=== PATIENT | male | born 1945 | race Hispanic/Latino ===

== ENCOUNTER 2018-11-24 05:46 | Day surgery (SDC) | payer MEDICARE ==
[2018-10-30 12:21] VITALS: BMI 22.3
--- NOTE | 2018-11-21 23:12 | HP ---
DATE OF EXAM: 11/21/2018 REASON FOR ADMISSION: Left heart catheterization, possible angioplasty, and abnormal stress test. BRIEF CLINICAL HISTORY: This is a 73-year-old male with a past medical history significant for nonobstructive coronary artery disease, status post cardiac catheterization in the past, hypertension, hyperlipidemia, admitted for left heart catheterization, possible angioplasty because of abnormal stress test. PAST MEDICAL HISTORY: Hypertension, hyperlipidemia, coronary artery disease nonobstructive, status post cardiac catheterization in the past. PREVIOUS CARDIAC WORKUP: As follows; the patient had a cardiac catheterization on 05/14/2016, that showed LAD 40% stenosis, circumflex, OM1 and OM2, 50% stenosis, RCA 30% to 40% stenosis, ejection fraction 55% to 60%. EDP was in the range of 15 to 18. Recently, the patient had a stress test dated 10/30/2018 that shows ejection fraction 46%. Abnormal myocardial perfusion study, medium sized anteroseptal apical defect suggestive of ischemia. When compared to 04/11/2016, the perfusion defect appears much larger than previous catheterization. Previous catheterization dated 05/10/2016, at that time revealed nonobstructive coronary artery disease limited to OM2, 60% to 70% ostial stenosis. Diffuse heavily atherosclerotic burden noted. Preserved LV function ejection fraction 50% to 60%. EDP was in the range of 15 to 18. Medical treatment recommended. The patient had echocardiography also dated 10/27/2018 that shows [id number] mitral regurgitation, trace tricuspid regurgitation, trace pulmonary insufficiency, ejection fraction 65%, and RV systolic pressure 23.6. SOCIAL HISTORY: Denies any smoking. Denies any history of alcohol abuse. CURRENT MEDICATIONS: The patient is taking at home simvastatin 40 mg daily, omeprazole 20 mg daily, Trajenta 5 mg daily, enalapril 2.5 mg daily, and aspirin 81 mg daily. ALLERGIES: NO KNOW DRUG ALLERGIES. PHYSICAL EXAMINATION: VITAL SIGNS: Height of the patient 5 feet 11 inches, patient's weight 160 pounds, and body mass index 25 kg/m2. Rest of the vitals; temperature afebrile, heart rate 80, and blood pressure 130/80. HEENT: PERRLA. Extraocular muscles intact. NECK: Supple. No carotid bruits. No thyromegaly. CHEST: Clear to auscultation. HEART: S1 and S2 regular. ABDOMEN: Soft. EXTREMITIES: Clubbing and cyanosis negative. DIAGNOSTIC DATA: EKG shows normal sinus, no acute ST-T changes noted, within normal limits. LABORATORY DATA: Lab workup pending. IMPRESSION AND PLAN: A 73-year-old male with past medical history of hypertension, hyperlipidemia, diabetes, abnormal stress test, cardiomyopathy, history of coronary artery disease, status post cardiac catheterization in 2016, nonobstructive coronary artery disease, limited to obtuse marginal 2 and left anterior descending and right coronary artery of 30% to 40% stenosis, had abnormal anteroseptal defect much larger than before. The patient is scheduled for cardiac catheterization. Risks, benefits, and alternatives were discussed with the patient, patient agreed, and we will proceed for cardiac catheterization. Further recommendations after cardiac catheterization. We will follow the lab when it is available. Then, we will proceed after the lab is available. We will load with aspirin, Plavix and proceed for cardiac catheterization. Further recommendation after cardiac catheterization. Ryan Stubbs MD cc: MD Dr. Santiago Baldwin MD
[2018-11-24] MEDS ORDERED: Lidocaine 2% Inj (20ml) ONE (06:58)
[2018-11-24] MEDS ORDERED: Iohexol 350mgl/ml 50 ML ONE (06:59)
[2018-11-24] MEDS ORDERED: Phenylephrine 10 mg/ml Inj ONE (06:59)
[2018-11-24] MEDS ORDERED: Heparin 2,000 ML IV ONE (07:00)
[2018-11-24] MEDS ORDERED: Nitroglycerin 50mg in D5W 50 MG/250 ML BOTTLE IV ONE (07:00)
[2018-11-24] MEDS ORDERED: Iodixanol 320 MG/ML 100 ML BOTTLE IV ONE (07:00)
[2018-11-24] MEDS ORDERED: Iodixanol 320 MG/ML 200 ML BOTTLE IV ONE (07:00)
[2018-11-24 07:14] LABS: BASO # 0.02 K/mm3 (0.0-2.0); BASO % 0.2 % (0.0-3.0); EOS # 0.3 (0.0-0.7); EOS % 3.4 % (1.5-5.0); GRAN # 7.42 (1.4-6.5); GRAN % 78.4 % (50.0-68.0); LYMPH # 1.2 (1.2-3.4); LYMPH % 12.5 % (22.0-35.0); MEAN CELL VOLUME 91.7 fl (80.0-105.0); MEAN CORPUSCULAR HEMOGLOBIN 30.8 pg (25.0-35.0); MEAN CORPUSCULAR HGB CONC 33.6 g/dl (31.0-37.0); MEAN PLATELET VOLUME 11.7 fl (7.0-11.0); MONO # 0.5 (0.1-0.6); MONO % 5.5 % (1.0-6.0); RBC 5.52 10^6/uL (3.5-6.1); RED CELL DISTRIBUTION WIDTH 13.4 % (11.5-14.5); WHITE BLOOD COUNT 9.5 10^3/uL (4.5-11.0)
[2018-11-24 07:23] LABS: INR 1.03; PARTIAL THROMBOPLASTIN TIME 27.7 Seconds (25.1-36.5); PROTHROMBIN TIME 11.8 SECONDS (9.4-12.5)
[2018-11-24 07:34] LABS: BLOOD UREA NITROGEN 16 mg/dL (7-21); GFR NON-AFRICAN AMERICAN > 60
[2018-11-24] MEDS ORDERED: Verapamil 2 ML ONE (07:34)
[2018-11-24] MEDS ORDERED: Midazolam 2 MG/2 ML VIAL ONE ×2 (07:38→08:18)
[2018-11-24] MEDS ORDERED: Eptifibatide 20 mg/10mL Inj IVP ONE (08:21)
[2018-11-24] MEDS ORDERED: Sodium Chloride 0.9% 1,000 ML IV SCH (09:30)
--- NOTE | 2018-11-24 09:49 | CPOSTOP ---
DATE: 11/24/2018 CARDIOVASCULAR LAB POST PROCEDURE NOTE PHYSICIAN: Dr. Cata Stubbs. SUPERVISOR UNLOADING: WALE Campos. TYPE OF ANESTHESIA: Moderate conscious sedation, total 2 mg of Versed and 150 mcg of fentanyl given periodically. Started 1 mg of Versed and 50 of fentanyl. PRE-PROCEDURE DIAGNOSES: Coronary artery disease nonobstructive, recent stress test abnormal and unstable angina. PROCEDURE PERFORMED: 1. Left heart catheterization. 2. Stenting of proximal LAD. 3. Stenting of obtuse marginal 2. 4. Plain balloon angioplasty of OM1. FINDINGS: Multivessel coronary artery disease. FINAL DIAGNOSIS: Multivessel coronary artery disease. POSTPROCEDURE PATIENT CONDITION: The patient condition is stable. VASCULAR ACCESS SITE: Left radial. CLOSURE DEVICE: TR-band. RADIATION DOSE: 70320.00 milligray unit. TOTAL FLUORO TIME: 10.6. Ryan Stubbs MD
[2018-11-24 12:32] VITALS: TEMP 98.1; O2SAT 99
--- NOTE | 2018-11-24 13:31 | CARD ---
APPROVED REPORT Date of service: 11/24/2018 EKG Measurement Heart [id number] <Conclusion> Marked sinus bradycardia Abnormal ECG
[2018-11-24 13:42] LABS: BASO # 0.01 K/mm3 (0.0-2.0); BASO % 0.1 % (0.0-3.0); EOS # 0.3 (0.0-0.7); EOS % 3.3 % (1.5-5.0); GRAN # 6.43 (1.4-6.5); LYMPH # 1.2 (1.2-3.4); LYMPH % 13.9 % (22.0-35.0); MEAN CELL VOLUME 90.5 fl (80.0-105.0); MEAN CORPUSCULAR HEMOGLOBIN 30.5 pg (25.0-35.0); MEAN CORPUSCULAR HGB CONC 33.7 g/dl (31.0-37.0); MEAN PLATELET VOLUME 10.8 fl (7.0-11.0); MONO # 0.4 (0.1-0.6); MONO % 4.7 % (1.0-6.0); RBC 4.55 10^6/uL (3.5-6.1); RED CELL DISTRIBUTION WIDTH 13.2 % (11.5-14.5); WHITE BLOOD COUNT 8.3 10^3/uL (4.5-11.0)
[2018-11-24 13:46] LABS: HEMOGLOBIN 13.9 g/dL (14.0-18.0)
[2018-11-24 13:51] LABS: BLOOD UREA NITROGEN 13 mg/dL (7-21); CALCIUM 8.7 mg/dL (8.4-10.5); GFR NON-AFRICAN AMERICAN > 60
[2018-11-24] MEDS ORDERED: Bacitracin 500 Units/gm Oint Foilpak UD ONE (14:47)
[2018-11-24 16:33] VITALS: RESP 52
[2018-11-24 16:35] VITALS: BP 100/68; PULSE 56
[2018-11-24] MEDS ORDERED: Linagliptin [Tradjenta] 5 MG (HOME MED) PO SCH (18:00)
--- NOTE | 2018-11-24 18:01 | CARD ---
APPROVED REPORT Date of service: 11/24/2018 Procedure(s) performed: Left Heart Catheterization PTCA with Stenting of proximal LAD with ASHVIN PTCA with Balloon Angioplasty of OM1 PTCA with Stenting of OM2 with ASHVIN HISTORY The patient is a 73 year-old male with a history of : most recent EF: 46%. (EF Method: RADIONUCLIDE), peripheral vascular disease, diabetes mellitus with treatment , previous diagnostic cath, tobacco history() : The patient is a current smoker , hypertension , dyslipidemia , who had an abnormal stress test Apical and inferior ischemia. INDICATION The indication(s) include : positive stress test. CASE TECHNIQUE The patient was brought electively to the Cardiac Catheterization Laboratory in a fasting state and was prepped and draped in a sterile manner. The left wrist was infiltrated with 2% Lidocaine subcutaneous anesthesia. A 6FR GLIDESHEATH ACCESS KIT sheath was inserted into the left radial artery without difficulty. Coronary angiography was performed using coronary diagnostic catheters. The left coronary system was accessed and visualized with a Diagnostic ,5F JL 4 CATH DXT 100 CM catheter. The right coronary system was accessed and visualized with a Diagnostic ,5F JR 4 CATH DXT 100 CM catheter. The left ventricle was accessed and visualized with a 5F PIGTAIL 145 CATH DXT 110 CM catheter. Left ventricular/Aortic Valve gradient assessed on pullback. Left ventriculogram was performed in LAURA projection. Closure device was deployed with a Fr TR Band (Regular) without any complications. The patient tolerated the procedure well and there were no complications associated with the procedure. Vessel Analysis The patient's coronary anatomy is co-dominant. The left main coronary artery is a medium size vessel with diffuse calcification noted throughout this vessel and without significant stenosis. The left main bifurcates to the left anterior descending and circumflex. The left anterior descending artery is a medium size vessel with diffuse calcification noted throughout this vessel and with significant stenosis. There is a 99% stenosis in the proximal segment. The first diagonal branch is a medium size vessel with diffuse calcification noted throughout this vessel and without significant stenosis. The circumflex artery is a medium size vessel with diffuse calcification noted throughout this vessel and without significant stenosis. The first obtuse marginal branch is a medium size vessel with diffuse calcification noted throughout this vessel and with significant stenosis. There is a 80% stenosis in the ostial segment. The second obtuse marginal branch is a medium size vessel with diffuse calcification noted throughout this vessel and with significant stenosis. There is a 90% stenosis in the ostial segment. The left posterior descending artery is a medium size vessel with diffuse calcification noted throughout this vessel and without significant stenosis. The right coronary artery is a large size vessel with diffuse calcification noted throughout this vessel and with significant stenosis. There is a 80% stenosis in the mid segment. two tendum lesions The right posterior descending artery is a medium size vessel with diffuse calcification noted throughout this vessel and without significant stenosis. The right posterolateral branch is a small size vessel with diffuse calcification noted throughout this vessel and without significant stenosis. Left Ventricle The left ventricle is normal in size with normal contractility. There was no cardiomyopathy. The left ventricular ejection fraction is estimated to be 55-60%. The left ventricular end diastolic pressure is 14-16 mmHg. There was no gradient across the aortic valve upon pullback. PCI Technique Lesion Anticoagulation was achieved with Heparin and integrellin bolluses, two. Percutaneous coronary intervention was performed on the proximal left anterior descending artery segment. The lesion stenosis prior to intervention was 99% with JOHN 2 flow. A 6 Fr XB 3.5 Guide Catheter was used to engage the ostium. A 0.014 x 182 cm Choice PT Extra Support Interventional Guidewire was used to cross the lesion. BALLOON DILATION A Balloon catheter 2.5 x 8 mm Trek RX was inserted and inflated up to 12.00atm for 229seconds. STENT DEPLOYMENT A drug-eluting stent STENT RESOLUTE NAVDEEP 2.5 X15 was inserted and inflated up to 12.00atm for 229seconds. POST STENT DEPLOYMENT BALLOON DILATION A Balloon catheter 2.5 x 8 mm Trek RX was inserted and inflated up to pauline for seconds. Final angiography reveals 0 % stenosis with JOHN flow. PCI Technique Lesion 2 Percutaneous Coronary Intervention was performed on the second obtuse marginal branch segment. The lesion stenosis prior to intervention was 95% with JOHN 3 flow. A 6 Fr XB 3.5 Guide Catheter was used to engage the ostium. A 0.014 x 182 cm Choice PT Extra Support Interventional Guidewire was used to cross the lesion. BALLOON DILATION A Balloon catheter 2.5 x 8 mm Trek RX was inserted and inflated up to 7.00atm for 80seconds. STENT DEPLOYMENT A drug-eluting stent STENT RESOLUTE NAVDEEP 2.25 X22 was inserted and inflated up to 12.00atm for 30seconds. Final angiography reveals 0 % stenosis with JOHN 3 flow. PCI Technique Lesion 3 Percutaneous Coronary Intervention was performed on the first obtuse marginal branch segment. The lesion stenosis prior to intervention was 80% with JOHN 2 flow. A 6 Fr XB 3.5 Guide Catheter was used to engage the ostium. A 0.014 x 182 cm Choice PT Extra Support Interventional Guidewire was used to cross the lesion. BALLOON DILATION A Balloon catheter 2.5/15 was inserted and inflated up to 8-10atm for 30seconds. Final angiography reveals 20 % stenosis with JOHN 3 flow. Conclusion Multi Vessel CAD Preserved LV Fx. EF-55-60%, EDP-14-16 mmof Hg. Successful PTCA with ASHVIN of Proximal LAD and OM2, and POBA of OM!. Recommendations Daily ASA with Plavix for at least one year Cardiac Risk Reduction Program Staged PTCA of RCA in four weeks ( 12/22/2018). Cc; drs. Dillon / robert.
[2018-11-25] MEDS ORDERED: Pantoprazole 40 mg EC Tab PO SCH (10:00)
== END 2018-11-24 20:32 | disposition home or self-care (01) ==
LOC: CATH 05:46 → 2RSO 09:26 → CATH 20:32
PROVIDERS: ATTEND Internal Medicine Cardiovascular Disease
DX: I25.110 Atherosclerotic heart disease of native coronary artery with unstable angina pectoris (principal); R94.39 Abnormal result of other cardiovascular function study; E11.51 Type 2 diabetes mellitus with diabetic peripheral angiopathy without gangrene; E78.5 Hyperlipidemia, unspecified; I10 Essential (primary) hypertension; Z95.5 Presence of coronary angioplasty implant and graft; Z87.891 Personal history of nicotine dependence
CPT/HCPCS: 36415; 80048; 85025; 85175; 85610; 85730; 86850; 86900; 93005; 93458; 99152; 99153; C1725; C1769 ×2; C1874 ×2; C1887; C9600; C9601; J1327; J1644 ×2; J2250; J3010; J7030; Q9966; Q9967 ×2

== ENCOUNTER 2018-12-22 05:54 | Day surgery (SDC) | payer MEDICARE ==
[2018-12-16 09:53] VITALS: BMI 22.6
--- NOTE | 2018-12-20 01:07 | HP ---
DATE OF EXAM: 12/19/2018 REASON FOR ADMISSION: Left heart catheterization, possible angioplasty, right coronary artery. BRIEF CLINICAL HISTORY: This is a 73-year-old male with past medical history significant for coronary artery disease, status post PTCA of LAD with drug-eluting stent, PTCA with balloon angioplasty of OM1, PTCA with drug-eluting stent of OM2 dated 11/24/2018, now the patient admitted electively for left heart cath, possible PTCA of right coronary artery. PAST MEDICAL HISTORY: Significant for hypertension, hyperlipidemia, coronary artery disease, history of PTCA of LAD with drug-eluting stent, history of plain balloon angioplasty of [place], and history of PTCA of OM2 dated 11/24/2018. PREVIOUS CARDIAC WORKUP FOLLOWS: The patient had a cardiac catheterization done on 11/24/2018 that shows multivessel coronary artery disease, at that time PTCA of LAD was done and plain balloon angioplasty of OM1 and PTCA of OM2 with drug-eluting stent was done, today the patient admitted for elective preop PTCA of RCA. At that time also cardiac catheterization reveal ejection fraction of 55% to 60%, EDP in the range of 16. SOCIAL HISTORY: Denies any smoking. Denies any history of alcohol abuse. CURRENT MEDICATIONS: The patient is taking at home; baby aspirin 81 mg daily, Plavix 75 mg daily, enalapril 2.5 mg daily, Trajenta 5 mg daily, omeprazole 20 mg daily, and simvastatin 40 mg daily. REVIEW OF SYSTEMS: As per HPI. PHYSICAL EXAMINATION: VITAL SIGNS: As follows; height of the patient is 5 feet 11 inches, weight of the patient 162 pounds, and body mass index 25 kg/m2. Vitals; temperature afebrile, heart rate 60, and blood pressure 130/80. HEENT: PERRLA. Extraocular muscles intact. NECK: Supple. No carotid bruit or thyromegaly. CHEST: Clear to auscultation. HEART: S1 and S2 regular. ABDOMEN: Soft. EXTREMITIES: Clubbing and cyanosis negative. LABORATORY DATA: Blood workup pending. IMPRESSION: A 73-year-old male with past medical history significant for coronary artery disease, status post percutaneous transluminal coronary angioplasty of left anterior descending, plain balloon angioplasty of obtuse marginal 1 and stenting of obtuse marginal 2, now the patient admitted electively for right coronary artery. Plan is to do percutaneous transluminal coronary angioplasty of right coronary artery. We will await for the blood workup and further recommendation after the cardiac catheterization. Thank you Dr. Dillon/Dr. Moses for providing us the opportunity in taking care of the patient, Brnet Maguire. Ryan Stubbs MD
[2018-12-22 06:30] LABS: BASO # 0.03 K/mm3 (0.0-2.0); BASO % 0.3 % (0.0-3.0); EOS # 0.5 (0.0-0.7); EOS % 6.3 % (1.5-5.0); HEMOGLOBIN 15.7 g/dL (14.0-18.0); LYMPH % 11.4 % (22.0-35.0); MEAN CELL VOLUME 91.4 fl (80.0-105.0); MEAN CORPUSCULAR HEMOGLOBIN 30.7 pg (25.0-35.0); MEAN CORPUSCULAR HGB CONC 33.6 g/dl (31.0-37.0); MEAN PLATELET VOLUME 10.5 fl (7.0-11.0); MONO # 0.6 (0.1-0.6); RBC 5.11 10^6/uL (3.5-6.1); RED CELL DISTRIBUTION WIDTH 13.2 % (11.5-14.5); WHITE BLOOD COUNT 8.6 10^3/uL (4.5-11.0)
[2018-12-22 06:39] LABS: INR 1.17; PARTIAL THROMBOPLASTIN TIME 34.5 Seconds (26.9-38.3); PROTHROMBIN TIME 13.2 SECONDS (9.4-12.5)
[2018-12-22 06:51] LABS: LDL CHOLESTEROL 78 mg/dL (0-129)
[2018-12-22 07:03] VITALS: O2SAT 98
[2018-12-22 07:05] LABS: BLOOD UREA NITROGEN 19 mg/dL (7-21); CALCIUM 9.5 mg/dL (8.4-10.5); GFR NON-AFRICAN AMERICAN > 60; HDL CHOLESTEROL 27 mg/dL (29-60)
[2018-12-22] MEDS ORDERED: Lidocaine 2% Inj (20ml) ONE (07:10)
[2018-12-22] MEDS ORDERED: Verapamil 2 ML ONE (07:10)
[2018-12-22] MEDS ORDERED: Nitroglycerin 50mg in D5W 50 MG/250 ML BOTTLE IV ONE (07:11)
[2018-12-22] MEDS ORDERED: Iohexol 350mgl/ml 50 ML ONE (07:11)
[2018-12-22] MEDS ORDERED: Midazolam 2 MG/2 ML VIAL ONE (07:47)
[2018-12-22] MEDS ORDERED: Eptifibatide 20 mg/10mL Inj IVP ONE (07:55)
[2018-12-22] MEDS ORDERED: Sodium Chloride 0.9% 1,000 ML IV SCH (09:00)
--- NOTE | 2018-12-22 09:34 | CPOSTOP ---
DATE: 12/22/2018 CARDIOVASCULAR LAB PROCEDURE NOTE PHYSICIAN: Ryan Stubbs MD PROJECTS MANAGER: WALE Campos TYPE OF ANESTHESIA: Moderate conscious sedation, total 2 mg of Versed and 100 mg of fentanyl given. PRE-PROCEDURE DIAGNOSIS: Unstable angina. PROCEDURE PERFORMED: 1. Left and right coronary injection. 2. Stenting of RCA. FINDINGS: Two tandem lesions in RCA. FINAL DIAGNOSIS: Single vessel coronary artery disease, patent previous stent. POST PROCEDURE CONDITION: The patient's condition is stable. VASCULAR ACCESS SITE: Left radial. CLOSURE DEVICE: TR-band. TOTAL RADIATION DOSE: 4404.97 milligray unit. TOTAL FLUORO TIME: 3.8 minutes. Ryan Stubbs MD
[2018-12-22 09:40] LABS: BASO # 0.03 K/mm3 (0.0-2.0); BASO % 0.3 % (0.0-3.0); EOS # 0.6 (0.0-0.7); EOS % 6.2 % (1.5-5.0); HEMOGLOBIN 13.9 g/dL (14.0-18.0); LYMPH # 1.2 (1.2-3.4); LYMPH % 13.5 % (22.0-35.0); MEAN CELL VOLUME 90.4 fl (80.0-105.0); MEAN CORPUSCULAR HEMOGLOBIN 30.5 pg (25.0-35.0); MEAN CORPUSCULAR HGB CONC 33.7 g/dl (31.0-37.0); MEAN PLATELET VOLUME 11.1 fl (7.0-11.0); MONO # 0.5 (0.1-0.6); MONO % 5.8 % (1.0-6.0); RBC 4.56 10^6/uL (3.5-6.1); RED CELL DISTRIBUTION WIDTH 13.1 % (11.5-14.5); WHITE BLOOD COUNT 8.9 10^3/uL (4.5-11.0)
[2018-12-22 09:54] LABS: BLOOD UREA NITROGEN 16 mg/dL (7-21); CALCIUM 8.8 mg/dL (8.4-10.5); GFR NON-AFRICAN AMERICAN > 60
--- NOTE | 2018-12-22 10:48 | CARD ---
APPROVED REPORT Date of service: 12/22/2018 EKG Measurement Heart [id number] <Conclusion> Sinus bradycardia with short [place] Otherwise normal ECG
[2018-12-22 12:16] VITALS: BP 146/78; PULSE 62; RESP 20
[2018-12-22 13:09] VITALS: TEMP 98.7
[2018-12-22] MEDS ORDERED: Linagliptin [Tradjenta] 5 MG (HOME MED) PO SCH (18:00)
--- NOTE | 2018-12-22 18:41 | CARD ---
APPROVED REPORT Date of service: 12/22/2018 Procedure(s) performed: Selective Right and Left Coronary Angiography PTCA with Stenting of Mid RCA with ASHVIN HISTORY The patient is a 73 year-old male with a history of : most recent EF: 55%. (EF Method: LVG), peripheral vascular disease, diabetes mellitus with oral treatment , previous diagnostic cath, tobacco history() : The patient is a current smoker , previous PCI (The PCI date was 11/24/2018), hypertension , dyslipidemia , for staged PTCA of RCA. INDICATION The indication(s) include : positive stress test, unstable angina , For staged PTCA of RCA. CASE TECHNIQUE The patient was brought electively to the Cardiac Catheterization Laboratory in a fasting state and was prepped and draped in a sterile manner. The left wrist was infiltrated with 2% Lidocaine subcutaneous anesthesia. A 6FR GLIDESHEATH ACCESS KIT sheath was inserted into the left radial artery without difficulty. Coronary angiography was performed using coronary diagnostic catheters. The left coronary system was accessed and visualized with a Diagnostic ,6F JL4 CATH DXT 100 CM catheter. The right coronary system was accessed and visualized with a Guided ,6 Fr JR 3.5 catheter. Closure device was deployed with a Fr TR Band (Regular) without any complications. The patient tolerated the procedure well and there were no complications associated with the procedure. Left and Right coronary injection, But No LV gram. Vessel Analysis The patient's coronary anatomy is co-dominant. The left main coronary artery is a medium size vessel with diffuse calcification noted throughout this vessel and without significant stenosis. The left main bifurcates to the left anterior descending and circumflex. The left anterior descending artery is a medium size vessel with diffuse calcification noted throughout this vessel and without significant stenosis. patent PTCA sites The first diagonal branch is a medium size vessel with diffuse calcification noted throughout this vessel and without significant stenosis. The second diagonal branch is a small size vessel with diffuse calcification noted throughout this vessel and without significant stenosis. The circumflex artery is a medium size vessel with diffuse calcification noted throughout this vessel and without significant stenosis. The first obtuse marginal branch is a medium size vessel with diffuse calcification noted throughout this vessel and without significant stenosis. Patent PTCA site The second obtuse marginal branch is a medium size vessel with diffuse calcification noted throughout this vessel and without significant stenosis. Patent Stent The left posterior descending artery is a medium size vessel with diffuse calcification noted throughout this vessel and without significant stenosis. The right coronary artery is a large size vessel with diffuse calcification noted throughout this vessel and with significant stenosis. There is a 80% stenosis Midsegment. two tandum lesions The right posterior descending artery is a medium size vessel with diffuse calcification noted throughout this vessel and without significant stenosis. The right posterolateral branch is a small size vessel with diffuse calcification noted throughout this vessel and without significant stenosis. Left Ventricle LV gram not obtained. PCI Technique Lesion Anticoagulation was achieved with Heparin and intyegrellin two bolluses. Percutaneous coronary intervention was performed on the mid right coronary artery. The lesion stenosis prior to intervention was 80% with JOHN 2 flow. A 6 Fr JR 3.5 Guide Catheter was used to engage the ostium. A Luge 182 Interventional Guidewire was used to cross the lesion. BALLOON DILATION A Balloon catheter 2.5 x 15 mm Sprinter RX was inserted and inflated up to 8.00atm for 11seconds. STENT DEPLOYMENT A drug-eluting stent STENT RESOLUTE NAVDEEP 3.0 X 22 was inserted and inflated up to 13.00atm for 22seconds. POST STENT DEPLOYMENT BALLOON DILATION A Balloon catheter 3.25 x 15 mm Sprinter NC was inserted and inflated up to 13.00atm for 22seconds. Final angiography reveals 0 % stenosis with JOHN 3 flow. Conclusion Patent previous PTCA Sites Successful PTCA with ASHVIN of Mid RCA Recommendations Daily ASA with Plavix for at least one year Aggressive Medical TherapyCardiac Risk Reduction Program add Lipitor 20 mg po daily. CC; Lico: Santana / Josué.
== END 2018-12-22 14:23 | disposition home or self-care (01) ==
LOC: CATH 05:54 → 2RSO 08:51 → CATH 14:23
PROVIDERS: ATTEND Internal Medicine Cardiovascular Disease
DX: I25.110 Atherosclerotic heart disease of native coronary artery with unstable angina pectoris (principal); I10 Essential (primary) hypertension; E11.51 Type 2 diabetes mellitus with diabetic peripheral angiopathy without gangrene; E78.5 Hyperlipidemia, unspecified; Z79.84 Long term (current) use of oral hypoglycemic drugs; Z95.5 Presence of coronary angioplasty implant and graft
CPT/HCPCS: 36415; 80048; 80061; 85025; 85610; 85730; 86850; 86900; 93005; 93454; 99152; 99153; C1725 ×2; C1769 ×2; C1874; C1887; C9600; J1327; J1644 ×2; J2250; J3010; J7030; Q9967 ×2